=== PATIENT | female | born 1955 | race Caucasian/White ===

== ENCOUNTER 2020-03-27 12:12 | Emergency (ER) | payer OTHER | END 2020-03-27 13:01 | disposition home or self-care (01) | LOC: JVIRT 12:12 | DX: Z03.818 Encounter for observation for suspected exposure to other biological agents ruled out (principal) | CPT/HCPCS: C9803; G2012-GT; U0003 ==

== ENCOUNTER 2020-06-07 15:05 | Emergency (ER) | payer OTHER | END 2020-06-07 15:36 | disposition home or self-care (01) | LOC: JVIRT 15:05 | DX: Z11.52 Encounter for screening for COVID-19 (principal) | CPT/HCPCS: C9803; G2012-GT; U0003 ==

== ENCOUNTER 2020-12-01 20:50 | Emergency (ER) | payer OTHER ==
[2020-12-01 20:59] VITALS: BP 141/84; PULSE 90; TEMP 98.2; BMI 25.6
== END 2020-12-01 22:52 | disposition home or self-care (01) ==
LOC: JERFT 20:50
DX: M25.522 Pain in left elbow (principal)
CPT/HCPCS: 73060-TC-LT-FY; 73070-TC-LT-FY; 99284-25